=== PATIENT | male | born 1950 | race Caucasian/White ===

== ENCOUNTER 2016-09-13 08:00 | Day surgery (SDC) | payer MEDICARE ==
[~2016-09-13 08:00] MED LIST: LACTATED RINGERS 1,000 ML IV SCH
[2016-09-13] MEDS ORDERED: LACTATED RINGERS 1,000 ML ONE (08:02)
[2016-09-13] MEDS ORDERED: IV START KIT ONE (08:02)
[2016-09-13] MEDS ORDERED: PROPOFOL 20 ML IV ONE (09:04)
[2016-09-13 13:07] LABS: HELICOBACTER PYLORII DETECTION NEGATIVE (NEGATIVE)
--- NOTE | 2016-09-15 12:53 | SURGPATH ---
[facility] [address] [place] [id number] Patient Name: FERCHO ORANTES MR#: [id number] : 1950 Gender: M Specimen #: [id number] Collected: 09/13/2016 Received: 09/14/2016 Reported: 09/15/2016 Submitting Phys: CAITIE CARLOS Copy To Phys: YAZMIN STRINGER [facility] Clinical History / Pre-Operative Diagnosis: Dysphagia, chest pain Specimen Source / Surgical Procedure Performed: Antral biopsy Interpretation: ANTRAL BIOPSY: - NO SIGNIFICANT PATHOLOGIC ABNORMALITIES IDENTIFIED. Electronically Signed Out Ligia Turcios M.D. Gross Description: The specimen is received in formalin labeled with the patient's name and "antrum". The specimen consists of four fragments of baird soft tissue, 0.5 x 0.4 x 0.1 cm in aggregate. Submitted in toto in one cassette MOLLY Chacon Microscopic Description: Sections of the antral biopsy show fragments of benign antral mucosa with no significant pathologic changes. No Helicobacter organisms are appreciated on the routinely stained sections. 1: [id number] [id number]
== END 2016-09-13 09:28 | disposition home or self-care (01) ==
LOC: SDC 08:00
PROVIDERS: ATTEND Internal Medicine Gastroenterology
DX: K22.2 Esophageal obstruction (principal); K29.70 Gastritis, unspecified, without bleeding; K29.80 Duodenitis without bleeding
CPT/HCPCS: 87081; 43239; 43249; J7120